=== PATIENT | male | born 1965 | race Caucasian/White ===

== ENCOUNTER 2018-04-14 10:39 | Emergency (ER) | payer OTHER ==
--- NOTE | 2018-04-14 10:42 | ER Report ---
History and Physical Time Seen By MD: 10:42 HPI/ROS CHIEF COMPLAINT: Rhino Rocket removal HISTORY OF PRESENT ILLNESS: Patient is a 52-year-old male who presents to the emergency department for removal of a Rhino Rocket was placed this past Sunday. Patient states he was visiting [place] and had a severe nosebleed. He had to go to the emergency department by ambulance where they were able to get the bleeding controlled and placed a Rhino Rocket. He is currently on losartan for elevated blood pressure as well as Keflex while the nasal packing is in. Patient has never followed up with a ENT doctor but was recommended that he do so. He reports that he has had no further bleeding since the Rhino Rocket was placed on Sunday. He is not taking any blood thinners. Allergies: Coded Allergies: prochlorperazine (Verified Allergy, Severe, UNKNOWN, 06/06/15) STATES IT WILL KILL HIM. Home Meds Reported Medications Azithromycin (ZITHROMAX) 250 Mg Tablet, 2 TAB PO DAILY Y for X 1 WEEK, TAB 04/14/18 Losartan Potassium (LOSARTAN POTASSIUM) 25 Mg Tablet, 25 MG PO QDAY 04/14/18 Past Medical/Surgical History Hypertension Hx Smoking: No Smoking Status: Never Smoker Hx Substance Use Disorder: No Constitutional Vital Sign - Last 24 Hours 04/14/18 04/14/18 10:42 11:25 Temp 98.3 Pulse 85 72 Resp 18 B/P (MAP) 172/94 164/100 (121) Pulse Ox 95 93 O2 Delivery Room Air Physical Exam General Appearance: Alert, no distress. Eyes: Pupils equal and round no pallor or injection. Nose: No active bleeding noted patient has an intact Rhino Rocket to the right naris. Mouth: Mucous membranes are moist. Throat: No erythema or exudates there is no tonsillar hypertrophy and uvula is midline. Medical Decision Making ED Course/Re-evaluation ED Course 04/14/2018 10:51:53 am plan at this time we will deflate of the Rhino Rocket balloon and leave the Rhino Rocket intact. Time and observation. If there is no epistaxis after 10 minutes we will remove remaining area in the balloon. And decide whether we will remove the Rhino Rocket at that time. Re-evaluation 04/14/2018 11:23:38 am nasal packing removed intactsignificant bleeding after 15 minutes of observation. We'll discharge patient home. Decision to Disposition Date: Apr 14, 2018 Decision to Disposition Time: 11:23 Depart Departure Latest Vital Signs Vital Signs Date Time Temp Pulse Resp B/P (MAP) Pulse Ox O2 Delivery O2 Flow Rate FiO2 04/14/18 11:25 72 164/100 (121) 93 Room Air 04/14/18 10:42 98.3 18 Impression: Primary Impression: Encounter for removal of nasal packing Condition: Improved Disposition: HOME OR SELF-CARE Referrals: LEONARD ORTIZ JR, MD schedule follow up for history of nosebleeds Patient Instructions: Nosebleed (ED) ROBERTA STACY MD Apr 14, 2018 10:42
[2018-04-14] MEDS ORDERED: AZIT-1 PO (10:45)
[2018-04-14] MEDS ORDERED: LOSA25TA50 PO (10:45)
[2018-04-14 11:25] VITALS: BP 164/100
== END 2018-04-14 11:27 | disposition home or self-care (01) ==
LOC: ER 11:06
DX: Z76.89 Persons encountering health services in other specified circumstances (principal)
CPT/HCPCS: 99281; 99283